=== PATIENT | female | born 1955 | race Caucasian/White ===

== ENCOUNTER 2016-10-10 10:34 | Inpatient (IN) | payer OTHER ==
[~2016-10-10] VITALS: Ht 162.6 cm; Wt 50.9 kg
[~2016-10-10 10:34] MED LIST: BUPROPION HCL150 M2 PO; CIPRO 500MG TA500 MG PO; FLOMAX(MONOGRA0.4 MG PO; PERCOCET 325 MG1 TA2 PO; SUBOXONE 8 MG-1 EACH SL; TRAZODONE HCL100 M1 PO; TRAZODONE HCL300 MG PO; TRAZODONE100 MG PO; WELLBUTRIN XL300 M2 PO
--- NOTE | 2016-10-10 11:01 | ED PSYCHIATRIC COMPLAINT ---
History of Present Illness General Chief Complaint: Psychiatric Related Complaint Stated Complaint: BIBA FOR +SI Source: patient, old records Exam Limitations: no limitations Vital Signs & Intake/Output Vital Signs & Intake/Output Vital Signs Date Time Temp Pulse Resp B/P Pulse O2 O2 Flow FiO2 Ox Delivery Rate 10/10 1733 97.8 71 18 171/75 96 Room Air 10/10 1242 Room Air 10/10 1236 64 16 131/60 97 Room Air 10/10 1040 95.3 70 20 192/91 100 Room Air Allergies Coded Allergies: morphine (Mild, ITCHING 10/10/16) rofecoxib (From VIOXX) (Mild, ITCHY 10/10/16) sulfamethoxazole (From BACTRIM) ("SULFA POISONING" 10/10/16) trimethoprim (From BACTRIM) ("SULFA POISONING" 10/10/16) Reconcile Medications Buprenorphine HCl/Naloxone HCl (Suboxone 8 MG-2 MG Sl Film) 8 MG-2 MG FILM 1 STR SL TID PAIN (Reported) Bupropion HCl (Wellbutrin XL) 300 MG TAB.ER.24H 1 TAB PO DAILY MENTAL HEALTH (Reported) Gabapentin 300 MG CAPSULE 1 CAP PO TID PRN ANXIETY (Reported) Trazodone HCl 100 MG TABLET 2 TAB PO QPM SLEEP (Reported) Triage Note: PT BIBA FROM OUTPATIENT PSYCH FOR +SI. PT REPORTS HER PLAN WAS TO BUY 2 BAGS OF HEROIN. PT HAS LONG HISTORY OF SUBSTANCE ABUSE FROM AGE 10. HAD BEEN SOBER THE LAST 5 YEARS UNTIL RELAPSING FEW DAYS AGO WITH HEROIN. DENIES ETOH OR OTHER SUBSTANCE USE/ABUSE. STATES SHE FEELS "HELPLESS", "USELESS" AND JUST FEELS LIKE SHE HAS "NO PURPOSE". 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 PT REQUESTING TO GO OUT AND SMOKE, ADVISED OF NO SMOKING POLICY AND THAT WOULD REQUEST NICOTINE PATCH FOR HER. PT CALM AND COOPERATIVE WITH ALL CARE. Triage Nurses Notes Reviewed? yes HPI: Patient is a 61-year-old female presents complaining of severe depression and suicidal ideation. Patient reports that she was sober from heroin for 5 years then relapsed approximately 3 days ago by snorting heroin. Patient reports her relapse and severe depression stem from her grandson recently overdosing. Depression is severe, thoughts of suicide by overdose. Patient has not taken her medications since Thursday, requesting Wellbutrin and Suboxone. Positive nausea and diarrhea. Denies recent trauma, fevers, vomiting, alcohol use. (MISAEL RAGSDALE) Past History Travel History Traveled to [place] past 21 day No Medical History Any Pertinent Medical History? 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 No (MISAEL RAGSDALE) Review of Systems Review of Systems Constitutional: Reports: fever. Denies: chills. EENTM: Reports: no symptoms. Respiratory: Denies: cough, short of breath. Cardiovascular: Denies: chest pain. GI: Reports: diarrhea, nausea. Denies: abdominal pain, vomiting. Genitourinary: Reports: no symptoms. Musculoskeletal: Reports: no symptoms. Skin: Reports: no symptoms. Neurological/Psychological: Reports: see HPI, depressed, emotional problems, headache. Denies: numbness. Hematologic/Endocrine: Denies: bruising, bleeding. Immunologic/Allergic: Reports: no symptoms. (MISAEL RAGSDALE) Physical Exam Physical Exam General Appearance: alert, awake Head: atraumatic, normal appearance Eyes: Bilateral: normal appearance, PERRL, EOMI. Ears, Nose, Throat: normal pharynx, normal ENT inspection, hearing grossly normal Neck: normal inspection, supple, full range of motion Respiratory: normal breath sounds, chest non-tender, no respiratory distress, lungs clear Cardiovascular: regular rate/rhythm Gastrointestinal: normal bowel sounds, soft, non-tender Extremities: normal range of motion, no track dudley, no signs of trauma Neurological/Psychiatric: awake, alert, depressed affect Behavoir/Eye Contact/Speech: cooperative, good eye contact Thoughts/Hallucinations: no apparent hallucination Skin: intact, normal color, warm/dry SAD PERSONS SAD PERSONS Response Value Age <19 or >45 years? yes 1 Depression/Hopelessness? yes 2 Previous Attempts/Psych Care yes 1 Excessive Ethanol/Drug Use? yes 1 Rational Thinking Loss? yes 2 Single//? yes 1 Social Support? has no support 1 Stated Future Intent? yes 2 Total 11 SAD PERSONS Done? yes (ABHIJEET HIDALGO,MISAEL) Progress Differential Diagnosis: drug intoxication, drug overdose, drug withdrawal, electrolyte abnormality, IC hem/mass/tumor, mood disorder, personality disorder, psychosis, suicide attempt Plan of Care: Orders Procedure Date/time Status Regular Diet 10/11 B Active Lab Add-on Test 10/10 1650 Active Lab Add-on Test 10/10 1646 Active Patient Data - inpatient psych 10/10 1640 Active Admit to inpatient psych 10/10 1640 Active Admit to inpatient psych 10/10 1625 Active Continuous Observation Monitor 10/10 1419 Active Intake & Output 10/10 1139 Active TSH REFLEX 10/10 1100 Active FREE T4 10/10 1100 Active ED CRISIS PSYCH CONSULT 10/10 1100 Active Continuous Observation Monitor 10/10 1042 Active URINE DRUG SCREEN FOR ER ONLY 10/10 1042 Active ETHANOL 10/10 1042 Active COMPREHENSIVE METABOLIC PANEL 10/10 1042 Active CBC WITHOUT DIFFERENTIAL 10/10 1042 Complete Vital Signs 10/10 UNK Active Nursing Misc 10/10 UNK Active Alternative Nursing Therapy 10/10 UNK Active Activity/Ambulation 10/10 UNK Active Current Medications Sig/Radha Start time Last Medication Dose Stop Time Status Admin Nicotine 21 MG DAILY 10/11 1000 AC (Nicoderm) Bupropion HCl 300 MG 0800 10/11 0800 AC (Wellbutrin XL) Gabapentin 300 MG BID@0800,1500 10/11 0800 AC (Neurontin) Buprenorphine/ 1 TAB TID@0800,1500,2200 10/10 2200 AC Naloxone (Suboxone) Gabapentin 600 MG AT BEDTIME 10/10 2200 AC (Neurontin) Trazodone HCl 200 MG AT BEDTIME 10/10 2200 AC (Desyrel) Al Hydroxide/Mg 30 ML Q4-6 PRN PRN 10/10 1700 AC Hydroxide (Maalox Plus) Magnesium Hydroxide 30 ML AT BEDTIME PRN 10/10 1700 AC (Milk Of Magnesia) Laboratory Tests 10/10/16 1200: Urine Opiates Screen > 4000.00 H, Buprenorphine & Metab Pending, Methadone Screen < 40, Barbiturate Screen < 60, Ur Phencyclidine Scrn < 6.00, Amphetamines Screen < 100, U Benzodiazepines Scrn < 85, Urine Cocaine Screen < 50, Urine Cannabis Screen < 5.00 10/10/16 1100: Anion Gap 10, Estimated GFR > 60, BUN/Creatinine Ratio 25.0, Glucose 158 H, Calcium 9.7, Total Bilirubin 0.4, AST 19, ALT 26, Alkaline Phosphatase 78, Total Protein 6.5, Albumin 4.0, Globulin 2.5, Albumin/Globulin Ratio 1.6, Free T4 Pending, TSH &T3 &Free T4 Intrp 0.108 L, CBC w Diff MAN DIFF ORDERED, RBC 5.17, MCV 85.1, MCH 28.8, RDW 13.8, MPV 8.7, Gran % 87.7 H, Lymphocytes % 10.9 L, Monocytes % 1.3 L, Eosinophils % 0, Basophils % 0.1, Absolute Granulocytes 7.1 H, Absolute Lymphocytes 0.9 L, Absolute Monocytes 0.1 L, Absolute Eosinophils 0, Absolute Basophils 0, Platelet Estimate VERIFIED BY SMEAR, Normocytic RBCs VERIFIED, Normochromic RBCs VERIFIED, PUBS MCHC 33.8, Serum Alcohol < 10.0 Patient's blood pressure significantly improved after administration of her Suboxone. Suspect opiate withdrawal. Patient evaluated by care clinician, to be admitted to [facility] (MISAEL RAGSDALE) Departure Departure Time of Disposition: 1626 Disposition: STILL A PATIENT Condition: Stable Clinical Impression Primary Impression: Depression Qualifiers: Depression Type: unspecified Qualified Code: F32.9 - Major depressive disorder, single episode, unspecified Secondary Impressions: Opiate withdrawal Referrals: TIMO RIOS,JUJU Moreno Departure Forms: Customer Survey General Discharge Information Psych Admission Note Psychiatric Admission: I have seen and evaluated DOC AREVALO. I have also reviewed all the pertinent lab results and diagnostic results. DOC AREVALO will be admitted to our inpatient Psychiatric unit for treatment and care. (MISAEL RAGSDALE) PA/WOODWIND REEDS CUTTER Co-Sign Statement Statement: ED Attending supervision documentation- [] I saw and evaluated the patient. I have also reviewed all the pertinent lab results and diagnostic results. I agree with the findings and the plan of care as documented in the PA's/WOODWIND REEDS CUTTER's documentation. [X] I have reviewed the ED Record and agree with the PA's/WOODWIND REEDS CUTTER's documentation. [] Additions or exceptions (if any) to the PAs/WOODWIND REEDS CUTTER's note and plan are summarized below: [] (STELLA GONZALEZ DO)
[2016-10-10 11:19] LABS: ABSOLUTE BASOPHIL COUNT 0 /CUMM (0.0-0.2); ABSOLUTE EOSINOPHIL COUNT 0 /CUMM (0.0-0.7); ABSOLUTE GRANULOCYTE CT 7.1 /CUMM (1.4-6.5); ABSOLUTE LYMPH COUNT 0.9 /CUMM (1.2-3.4); ABSOLUTE MONOCYTE COUNT 0.1 /CUMM (0.10-0.60); BASOPHIL % 0.1 % (0.0-2.0); EOSINOPHIL % 0 % (0-5); GRANULOCYTE % 87.7 % (42.2-75.2); MEAN CORPUSCULAR HGB 28.8 PG (27.0-31.0); MEAN CORPUSCULAR HGB CONC 33.8 G/DL (33.0-37.0); MEAN CORPUSCULAR VOLUME 85.1 FL (81.0-99.0); MEAN PLATELET VOLUME 8.7 FL (7.4-10.4); PLATELET COUNT 226 /CUMM (130-400); RBC DISTRIBUTION WIDTH 13.8 % (11.5-14.5); RED BLOOD CELL CT 5.17 /CUMM (4.20-5.40)
[2016-10-10] MEDS ORDERED: GABAPENTIN300 M2 PO (14:19)
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
[2016-10-10 19:04] VITALS: BP 171/78
--- NOTE | 2016-10-10 23:13 | History & Physical ---
General Information and HPI MD Statement: I have seen and personally examined DOC AREVALO and documented this H&P. The patient is a 61 year old F who presented with a patient stated chief complaint of [Depression, SI, relapsed to Heroin]. Source of Information: patient Exam Limitations: no limitations History of Present Illness: 61 yo F with h/o depression, previous opioid dependence on suboxone (sober from heroin for 5 years), relapsed about 3 days ago by snorting heroin. She is admitted to Inpatient Psychiatry for worsening depression and suicidal ideation. She also stopped taking her depression meds for past few days. For more details, please refer to Psych H and P. Nausea+, diarrhea+. No vomiting or abdominal pain. Currently denies chest pain, dyspnea, palpitations, lightheadedness, cough or urinary symptoms. She does not carry a history of hypertension, but her BP was noted to be elevated while in the ER. Allergies/Medications Allergies: Coded Allergies: morphine (Mild, ITCHING 10/10/16) rofecoxib (From VIOXX) (Mild, ITCHY 10/10/16) ITCHING AND SWELLING sulfamethoxazole (From BACTRIM) ("SULFA POISONING" 10/10/16) trimethoprim (From BACTRIM) ("SULFA POISONING" 10/10/16) Home Med list Buprenorphine HCl/Naloxone HCl (Suboxone 8 MG-2 MG Sl Film) 8 MG-2 MG FILM 1 STR SL TID PAIN (Reported) Bupropion HCl (Wellbutrin XL) 300 MG TAB.ER.24H 1 TAB PO DAILY MENTAL HEALTH (Reported) Gabapentin 300 MG CAPSULE 1 CAP PO TID PRN ANXIETY (Reported) Trazodone HCl 100 MG TABLET 2 TAB PO QPM SLEEP (Reported) Compliance With Home Meds: FAIR Past History Travel History Traveled to [place] past 21 day No Medical History Neurological: NONE EENT: NONE Cardiovascular: NONE Respiratory: NONE Gastrointestinal: diverticulitis Hepatic: NONE Renal: NONE Musculoskeletal: NONE Psychiatric: depression, insomnia, opioid dependence Endocrine: NONE Blood Disorders: NONE Cancer(s): NONE YARD STOCKER/Reproductive: NONE History of MRSA: No History of VRE: No History of CDIFF: No Isolation History: Standard Surgical History Surgical History: Left ankle mortise fracture s/p repair, Intestinal obstruction s/p resection and repair. Past Family/Social History Family History Relations & Conditions if any FATHER (HypertensionMILeukemia). Psychosocial History Where do you live? Home Who Do You Live With? self Services at Home: None Primary Language: Bolivian Smoking Status: Current Everyday Smoker ETOH Use: denies use Illicit Drug Use: heroin, SOBER X 5 YRS, RELAPSED FEW DAYS AGO...10/2016 Functional Ability ADLs Independent: dressing, eating, toileting, bathing. Ambulation: independent IADLs Independent: housework, telephone, transportation. Employment History Employment Unemployed Profession/Employer Patient recently unemployed Review of Systems Review of Systems Constitutional: Denies: chills, fever, weakness. EENTM: Reports: no symptoms. Cardiovascular: Denies: chest pain, palpitations, syncope. Respiratory: Denies: cough, short of breath, wheezing. GI: Reports: diarrhea, nausea. Denies: abdominal pain, vomiting. Genitourinary: Reports: no symptoms. Musculoskeletal: Reports: no symptoms. Neurological/Psychological: Reports: see HPI. All Other Systems: Reviewed and Negative Exam & Diagnostic Data Last 24 Hrs of Vital Signs/I&O Vital Signs Date Time Temp Pulse Resp B/P Pulse O2 O2 Flow FiO2 Ox Delivery Rate 10/10 1904 98.2 60 171/78 10/10 1733 97.8 71 18 171/75 96 Room Air 10/10 1242 Room Air 10/10 1236 64 16 131/60 97 Room Air 10/10 1040 95.3 70 20 192/91 100 Room Air Intake & Output 10/10 1600 10/10 0800 10/10 0000 Intake Total Output Total Balance Patient 120 lb Weight Physical Exam General Appearance Alert, Oriented X3, Cooperative, No Acute Distress Skin No Rashes, No Breakdown HEENT Atraumatic, PERRLA, Mucous Membr. moist/pink Neck Supple Cardiovascular Regular Rate, Normal S1, Normal S2, No Murmurs Lungs Clear to Auscultation, Normal Air Movement Abdomen Normal Bowel Sounds, Soft, No Tenderness Neurological Exam Findings: Normal Gait, Normal Speech, Strength at 5/5 X4 Ext, Cranial Nerves 3-12 NL, Reflexes 2+ Cranial Nerves II through XII: Grossly intact Extremities No Edema, Normal Pulses, No Tenderness/Swelling Last 24 Hrs of Labs/Elvis: Laboratory Tests 10/10/16 1200: Urine Opiates Screen > 4000.00 H, Buprenorphine & Metab POSITIVE, Methadone Screen < 40, Barbiturate Screen < 60, Ur Phencyclidine Scrn < 6.00, Amphetamines Screen < 100, U Benzodiazepines Scrn < 85, Urine Cocaine Screen < 50, Urine Cannabis Screen < 5.00 10/10/16 1100: Anion Gap 10, Estimated GFR > 60, BUN/Creatinine Ratio 25.0, Glucose 158 H, Calcium 9.7, Total Bilirubin 0.4, AST 19, ALT 26, Alkaline Phosphatase 78, Total Protein 6.5, Albumin 4.0, Globulin 2.5, Albumin/Globulin Ratio 1.6, Free T4 1.55 , Total T3 1.31, TSH &T3 &Free T4 Intrp 0.108 L, CBC w Diff MAN DIFF ORDERED, RBC 5.17, MCV 85.1, MCH 28.8, RDW 13.8, MPV 8.7, Gran % 87.7 H, Lymphocytes % 10.9 L, Monocytes % 1.3 L, Eosinophils % 0, Basophils % 0.1, Absolute Granulocytes 7.1 H, Absolute Lymphocytes 0.9 L, Absolute Monocytes 0.1 L, Absolute Eosinophils 0, Absolute Basophils 0, Platelet Estimate VERIFIED BY SMEAR, Normocytic RBCs VERIFIED, Normochromic RBCs VERIFIED, PUBS MCHC 33.8, Serum Alcohol < 10.0 Diagnostic Data EKG Results -- CXR Results -- Assessment/Plan Assessment: 61 yo F admitted for worsening depression, suicidal ideation and relapsed by snorting heroin 3 days ago. 1. Management per Psych team. Symptomatic treatment of opiate withdrawal. 2. Elevated BP likely stress/ anxiety related. BP rechecked 136/60. Will continue to monitor. 3. Smoking cessation counseling, nicotine patch. 4. Low TSH, but normal free T4 and T3. Possibly sick euthyroid. Patient will need to recheck TFTs as outpatient in 4 weeks. DVT prophylaxis - low risk, early ambulation. As Ranked By This Provider Problem List: 1. Insomnia 2. Anxiety 3. Elevated blood pressure 4. Suicide ideation 5. Depression Qualifiers Depression Type: unspecified Qualified Code: F32.9 - Major depressive disorder, single episode, unspecified Miscellaneous Miscellaneous Documentation Attending Case Discussed With: JEAN CLAUDE COUCH,JOHN Primary Care Physician: ASHLEY COUCH,NICA Patient sees these Specialists -- Level of Patient Care: MINH Kwok Attending MD Review Statement Attending Statement Attending MD Statement: examined this patient, discuss w/resident/PA/ROAD MAKER
--- NOTE | 2016-10-10 23:13 | Admission Certification ---
Admission Certification Certification Statement - As attending physician, I certify that at the time of - admission, based on clinical presentation, severity of - symptoms, need for further diagnostic testing and - therapeutic interventions, and risk of adverse outcomes - without in-hospital treatment, in my clinical assessment, - this patient requires an acute hospital stay for a minimum - of two nights or longer. I have also considered psychsocial - factors such as support system, advanced age, financial - issues, cognitive issues, and failed out-patient treatments, - past re-admission history, safety of patient, and lack of - compliance as applicable. Specific rationale supporting this admission is: Depression and suicidal ideation.
[2016-10-10 23:33] VITALS: BP 136/60
[2016-10-11 12:52] VITALS: BP 137/63
--- NOTE | 2016-10-11 13:27 | CPS MD/APRN INITIAL ASSE PSYCH ---
Psychiatric Admission Drum Worker's Note Reviewed: Yes Patient Seen and Examined: Yes Identifying Information: 61 year old female with history of depression and opioid dependence Chief Complaint: "I've got a lot to take care of myself first" Reaction to Hospitalization: Relieved History of Present Illness Onset of Illness: Chronic difficulties with mood Circumstances Leading to Admission: Difficulties with her 25-year-old grandson who overdosed on heroin recently, lost job at [employer] in August with consequent difficulties with finances, and ongoing strife with her adult daughter. Relapsed on heroin 3 days prior to admission. Problem(s) Justifying Need for Admission: Worsening depression, suicidal ideation with plan Other HPI: Per telecommunications linesworker note: " The patient is a 61 year old female BIBA to the ED with a complaint of depression and suicidal ideation. The patient presented as depressed, tearful, hopeless and helpless. She reports current suicidal ideation with a plan to overdose by doing as much heroin as I can and not wake up. She reports decreased energy and motivation (not able to shower at times for 3 or 4 days). She reports decreased appetite (sometimes not eating for 2 or 3 days). She reports regular sleep with the assistance of Trazadone. She reports depression of 10 and anxiety of 8 on a scale of 0 to 10, 10 being most severe. The patient reports her triggers as being her 25 year old grandson overdosing on heroin last week, losing her job at [employer] in August and finances. The patient denies any prior suicide attempts. She denies past or current HI, visual hallucinations and auditory hallucinations. The patient reports relapsing with heroin on Thursday after being abstinent from heroin for 5 years, using two bags of heroin IN. The patient reports being seen by Dr. Ward of [facility] outpatient for ongoing treatment. She reports being compliant with taking her prescribed Wellbutrin, Suboxone, Trazadone and Gabapentin. The patient reports a prior inpatient admission for depression and suicidal ideation at [facility] in August,. The patient reports worsening depression, ongoing suicidal ideation, not feeling safe to return home and requests inpatient treatment." Past Psychiatric History Past Diagnosis(es)- if any: Major depressive disorder, recurrent Opioid use disorder, severe Past Precipitating Factors- if any: Psychosocial stressors Substance use - Include inpatient and outpatient treatment Treatment History: Currently in outpatient treatment at [facility] with Dr. Tommy Ward. One previous inpatient psychiatric Hospital physician at in August 2015 for depression with SI. History of Suicide Attempts or Gestures Denies history of suicide attempts Substance Abuse History: Opiate use, including heroin currently on Suboxone maintenance treatment. Allergies: Coded Allergies: morphine (Mild, ITCHING 10/10/16) rofecoxib (From VIOXX) (Mild, ITCHY 10/10/16) ITCHING AND SWELLING sulfamethoxazole (From BACTRIM) ("SULFA POISONING" 10/10/16) trimethoprim (From BACTRIM) ("SULFA POISONING" 10/10/16) Home Med List: Per ER intake note Buprenorphine HCl/Naloxone HCl (Suboxone 8 MG-2 MG Sl Film) 8 MG-2 MG FILM 1 STR SL TID PAIN (Reported) Bupropion HCl (Wellbutrin XL) 300 MG TAB.ER.24H 1 TAB PO DAILY MENTAL HEALTH (Reported) Gabapentin 300 MG CAPSULE 1 CAP PO TID PRN ANXIETY (Reported) Trazodone HCl 100 MG TABLET 2 TAB PO QPM SLEEP (Reported) - Include any medical condition(s) that may - impact the patient's recovery/remission Past History Medical History Neurological: NONE EENT: NONE Cardiovascular: NONE Respiratory: NONE Gastrointestinal: diverticulitis Hepatic: NONE Renal: NONE Musculoskeletal: NONE Psychiatric: depression, insomnia, opioid dependence Endocrine: NONE Blood Disorders: NONE Cancer(s): NONE 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 Contentious relationship with her daughter [place] Education: Some college Vocation/Occupation: Most recently employed at [employer]. Lost her job there in August 2016 Legal: None known Other Social History: Grandson with heroin addiction Healthly Behaviors Screening Tobacco Screening Tobacco Use from ED Docu: Current Daily Use Daily Tobacco Use Amount/Type: => 5 Cigarettes daily - If tobacco counseling indicated - the following topics are required. - #1 Recognizing dangerous situations. - #2 Coping Skills. - #3 Basic information about quitting. Status of Tobacco Cessation Counseling: #1, #2 AND #3 Completed Cessation Med Status: Nicotine Patch Ordered Alcohol Screening - ETOH screen POS if BAL >=80 or Audit-C>= M4/F3 Audit-C Score from Diag Assess: 0 Blood Alcohol Level: Laboratory Tests 10/10 1100 Toxicology Serum Alcohol (<10 MG/DL) < 10.0 Alcohol Use Screening Results: Neg per Audit C &/or BAL - If ETOH counseling indicated - the following topics are required. - #1 Express concern about the patient's - drinking at unhealthy levels, include informing - of national norms for moderate drinking: - men <= 14 drinks/week, max 4 drinks/occasion - women <= 7 drinks/week, max 3 drinks/occasion - #2 Providing feedback, including linking alcohol to - negative physical effects (liver injury, hypertension) - negative emotional effects (relationship problems and - depression) - negative occupational consequences (reduced work - performance) - #3 Advising the patient to abstain from alcohol or - to drink below national norms for moderate drinking - (as listed above). Status of ETOH Use Counseling: N/A B/C NO ETOH Use Metabolic Screening - Screen if on a Neuroleptic Medication - Metabolic screening should include: - Blood Pressure, BMI, Glucose or Hgb A1c, & a - Lipid profile from within the past 365 days. Metabolic Screening () Not Applicable, patient not on a neuroleptic. Exam and Plan Mental Status Examination Ambulation Status: stable Appearance: well groomed Attitude towards examiner: cooperative Psychomotor activity: wnl Behavior: wnl Quality of speech: wnl Affect: constricted Mood: "feeling more comfortable" Suicidal Ideation: Denies Homicidal Ideation: Denies Hallucinations: Denies Paranoid/Delusional Material: Denies Difficulties with thought organization: None Insight: Fair Judgment: Fair Orientation: To person place time and situation Cognition: Intact Memory Function: Intact Estimate of intellectual functioning: Average Assets/Strengths Patient Identified Assets/Strengths: Wants to support her family. Some support from her mother. Impression/Plan Impression and Plan: Significant depressive reaction in response to multiple psychosocial stressors and substance use as maladaptive coping. - Include all active medical diagnosis that require tx DSM 5 Diagnosis(es): Major depressive disorder, recurrent Opiate use disorder, moderate - Initial Tx Plan for Active Psych & Medical Conditions Treatment Plan: Admit inpatient psychiatry 15 minute checks appropriate Continue outpatient medications Monitor for mood improvement and safety Attempt to build further coping skills, social work intervention to include investigation into alternative living situation To determine appropriate outpatient level of care - Factors that would help patient function - in a less restrictive setting. Factors: Improved mood, reduced or absent suicidal ideation
[2016-10-11 15:43] VITALS: BP 134/75
[2016-10-11 19:50] VITALS: BP 144/78
[2016-10-12 08:33] VITALS: BP 149/79
[2016-10-12 12:19] VITALS: BP 111/62
--- NOTE | 2016-10-12 13:27 | CP SOUTH PROGRESS NOTE PSYCH ---
Psych (Inpt) Progress Note Progress Note Include the following elements, when applicable: Involvement in the active treatment of the patient with behavioral observations of the patient and the patient's response to the treatment. Review of the ongoing treatment process in the context of the treatment plan. Indication of how multi-disciplinary staff members are carrying out the treatment plan. Plans for future interventions and recommendations for revision of the treatment plan. Liaison with other physicians/providers. Progress Note: Chart reviewed, patient progress discussed nursing staff. Interview patient this morning. Jasmine was struggling with anxiety and mood today. We underwent a prolonged session this morning where she described her concerns for the future, saying "it's been so long since I can remember just waking up and looking forward to the day, and feeling normal". She describes significant concern about her relationship with her daughter as well as her daughter's son. We discussed the importance of both short and long-term goals. She denies suicidal ideation on the unit. Denies HI or perceptual disturbances. Says that her mood remains very depressed. Vitals reviewed and were within normal limits. No new laboratory results today. Mental status exam: Very thin female dressed appropriately adequate grooming. Cooperative with interview quite tearful during interview. Fair eye contact. Speech was within normal limits. Mood was "really depressed ", affect was constricted, labile, congruent. Thought process was logical and linear, content regarding difficulties with family and finances, denies SI or HI, denies perceptual disturbances, cognition was grossly intact, insight and judgment was fair. A/P: Continue present management. Focused on reframing significant social stressors and trying to establish a realistic plan moving forward.
[2016-10-12 15:09] VITALS: BP 127/70
[2016-10-12 19:49] VITALS: BP 154/88
[2016-10-13 07:59] VITALS: BP 128/67
[2016-10-13 12:23] VITALS: BP 115/55
--- NOTE | 2016-10-13 13:11 | CP SOUTH PROGRESS NOTE PSYCH ---
Psych (Inpt) Progress Note Progress Note Include the following elements, when applicable: Involvement in the active treatment of the patient with behavioral observations of the patient and the patient's response to the treatment. Review of the ongoing treatment process in the context of the treatment plan. Indication of how multi-disciplinary staff members are carrying out the treatment plan. Plans for future interventions and recommendations for revision of the treatment plan. Liaison with other physicians/providers. Progress Note: PSYCHIATRIST NOTE (10/13/2016): I asssumed the care of this patient this morning. I have reviewed the admission note, initial M.D. assessment and progress note, as well as the prescriber notes going back to 08/2012 (those of Dr. Howell, Dr. Howard, Dr. Fermin , Dr. Mireles, Dr. Murrieta, Dr. Ely) and those of current treating Psychiatrist, Dr. Tommy Ward; I have also spoken the the latter directly today via telephone to consult re recent history and a joint treatment plan going forward. Patient reports feeling less desperate and overwhelmed than she had been ADOPTION COUNSELOR when she took the 2 bags of heroin and contemplated taking a much higher dose, but she is still profoundly depressed, anergic, lacking in energy but sleeping better with the full 200mg of trazodone at HS with 300mg of Neurontin; she does not want the latter regularly 3x/day but would rather have 1-2 PRN doses of the Neurontin as needed for anxiety or insomnia. Though patient acknowledges continued craving for heroin, this is becoming less intense daily, and she feels the current dose of Suboxone, 8/2mg SL 3x/day is sufficent though we changed the dosing hours slightly. Patient told me the only other anti- depressant medication she has been on was [place], 600mg/day, to augment the Wellbutrin XL, 300mg daily but that the [place] was "too much...and didn't help, " so she stopped taking it some time ago and did not notice any intensification of depressive mood following self-d/c of Li+. We discussed possible augmentation of Wellbutrin with low dose Lexapro; after discussion of R/B/SE patient agreed to start Lexapro, 5mg, tomorrow AM, . We also discussed having a family meeting; patient had already gone over this with Ms. Bre, and there will be a telephonic meeting with her mother (who is [id number]); patient feels that adding anyone else from her family would likely only lead to increase in stress and dysfunction in the family at this time. Dr. Cooper agrees to patient following up in the dual focus IOP; in fact , he had already been making arrangements for this ADOPTION COUNSELOR. We will likely be able to discharge patient before the weekend.
--- NOTE | 2016-10-13 13:32 | SOCIAL WORKER PROG NOTE PSYCH ---
Social Work Progress Note Progress Note HASMUKH met with patient for the first time today. Patient reports that she has felt extremely overwhelmed lately, mostly related to family concerns. Patient states that she resides with her daughter and her grandson. Patients grandson is a heroin user and overdosed last week. Patient reports that she has been unable to sleep lately due to fear of him overdosing and dying. Patient reports that she relapsed on heroin last Thursday due to all the stress she has been experiencing but her family is not aware of this. Patient does not wish to have her daughter involved in her treatment. Patient is open to her mother doing a phone conference with us but reports some hesitancy about any family involvement. Patient reports that she would like to return to [facility] with in near future and plans for discharge from the hospital over the next few days.
--- NOTE | 2016-10-13 13:52 | SOCIAL WORKER TX PLAN PSYCH ---
Treatment Plan - Please Document: - Evidence that there is ongoing collaboration between - the patient and the interdisciplinary team, - including the patient's active participation and - responsibility for engaging in the treatment regimen, - and that the treatment plan is individualized and - relevant to the patient's conditions. - Treatment plan should reflect documentation indicating - that all active therapeutic efforts are included. Strengths/Capabilities: Insight into her need for treatment and motivated to attend. Physical Limitations (Interventions): None noted Patient Identified Trmt Goals: "I want to feel better about things." Discharge Plan: IOP Problem/Goals #1 Problem #1: suicidal ideation Goal (Short Term): Today I will attend 2 groups Today I will identify 2 stressors Today I will identify 2 positive supports Today I will work on recognizing 3 emotions I am feeling Goal (Litigation Legal Assistant): Be free of suicidal thoughts/attempts Develop 3 coping skills to deal with depression Identify 3 positive support systems to call in crisis Develop a crisis plan with 3 dey people Identify 2 positive traits per week about myself Identify 2 things I have to look forward to Identify 2 positive people in my life and 1 thing I appreciate about them Interventions: Learn ways to manage depressive symptoms accordingly and identify positive supports to manage life stressors and mood fluctuations. Modalities: Encourage groups, education on depression, provide CBT treatment, family meeting. DSM5/PS Stressors/Medical Prob Diagnosis' (DSM 5, Stressors, Medical): F32.9 Unspecified Depressive Disorder F11.20 Opioid Use Disorder, Severe Current GAF: 28 Treatment Team - Responsibilities of members of the treatment team include: - Medication Management- MD or CAR CHANGER - Medication Administration and Monitoring- Nurse - Group Therapy- Occupational Therapist - 1:1 Therapy,Disch Planning,family involvement-Dumper Mold Cleaner
[2016-10-13 16:19] VITALS: BP 128/67
[2016-10-13 19:49] VITALS: BP 158/78
[2016-10-14 07:47] VITALS: BP 109/54
[2016-10-14 11:29] VITALS: BP 116/59
--- NOTE | 2016-10-14 11:58 | SOCIAL WORKER PROG NOTE PSYCH ---
Social Work Progress Note Progress Note Met with pt individually. Pt expresses that she is feeling better and thinks she is ready to discharge soon. She denies any SI. She expressed her motivation to return to IOP. Pt expressed her anxiety about her grandson and his drug use, but identified that she realizes that she has no control over it and needs to continue to take care of herself and her sobriety.
[2016-10-14 16:08] VITALS: BP 148/70
--- NOTE | 2016-10-14 18:24 | CP SOUTH PROGRESS NOTE PSYCH ---
Psych (Inpt) Progress Note Progress Note Include the following elements, when applicable: Involvement in the active treatment of the patient with behavioral observations of the patient and the patient's response to the treatment. Review of the ongoing treatment process in the context of the treatment plan. Indication of how multi-disciplinary staff members are carrying out the treatment plan. Plans for future interventions and recommendations for revision of the treatment plan. Liaison with other physicians/providers. Progress Note: PSYCHIATRIST NOTE (10/14/2016): I discussed this patient's progress to date, current mental status and plan with staff team today in the [facility] and also met with her again myself in individual session. Patient denied any problems, jitteriness, headache, dyspepsia, etc., on initial dose of Lexapro (5mg) this morning and was willing to double the daily dose tomorrow, 10/15/2016, to 10mg (to augment Wellbutrin). She has been having a problem with constipation, has not moved her bowels in 3+ days which is unusual and uncomfortable for her; she agreed to a dose of Dulcolax and prefers it in suppository form, insisting "that works best when I can't 'go'." Patient says that though she "smokes alot" she only asks for the 21mg patch irregularly; we agreed to lower the dose to 14mg daily, but she will use that dose daily. Patient continues to be positive re attending the dual focus IOP, to discharge on 10/16/2016 and starting the AM tract the next morning. Patient claims to have slept better last night and to not have felt at all groggy this morning; her mood and outlook seem to be improving; patient had a positive interaction earlier today with the daughter with whom she resides; this also served to place her more at ease.
[2016-10-14 19:40] VITALS: BP 153/78
[2016-10-15 08:06] VITALS: BP 115/56
[2016-10-15 12:24] VITALS: BP 127/53
--- NOTE | 2016-10-15 13:36 | SOCIAL WORKER PROG NOTE PSYCH ---
Social Work Progress Note Progress Note Patient had phone conference today with her mother, Jasmine, and this communications writer. Patients mothers primary concern is patients current living situation. Patient currently resides with her daughter and grandson. Patients mother reports that in the past patient lived with her and other family members and it was a good situation for patient. Patient disagrees and states that she found that environment very intrusive and stressful. Mother wishes patient still lived with her and fears that returning back to patients daughters household will be stressful and not beneficial for her. Patient states that at this point she does not have other options and needs to remain with her daughter. Patients mother fears that patient will end up back inpatient at in the near future if she continues to reside in a stressful and harmful environment iwth her daughter. Patient was not willing to compromise on this situation but did state that she is working on applying for SSDI and if she is elegible then she will seek her own housing. Patient denies SI/HI/AH/VH at present and reports feeling ready to discharge the hospital tomorrow. Patient has intake at 12:45pm and logisticare will be arranged to transport patient home.
[2016-10-15 15:51] VITALS: BP 143/63
--- NOTE | 2016-10-15 18:39 | CP SOUTH PROGRESS NOTE PSYCH ---
Psych (Inpt) Progress Note Progress Note Include the following elements, when applicable: Involvement in the active treatment of the patient with behavioral observations of the patient and the patient's response to the treatment. Review of the ongoing treatment process in the context of the treatment plan. Indication of how multi-disciplinary staff members are carrying out the treatment plan. Plans for future interventions and recommendations for revision of the treatment plan. Liaison with other physicians/providers. Progress Note: PSYCHIATRIST NOTE (10/15/2016): I discussed this patient's progress to date, current mental status and discharge planning with staff team in the daily morning ITTM and also met with her again myself in individual session. Patient denied any side effects from increased dose of Lexapro (10mg/day) and is positive re continuing on augmentation of Wellbutrin therapy with SSRI while attending dual focus [facility]. Patient plans to continue living with her own daughter until she has the opportunity to secure her own apartment and will endeavor to minimize friction between them; she ruled out going to stay with her mother citing even greater potential for problems developing in mother's home. Patient is very grateful for the care she has received on [facility] and is feeling stronger and better able to cope out the the community at this time, ready for discharge tomorrow directly to IOP intake.
[2016-10-15 19:26] VITALS: BP 139/63
[2016-10-16 08:03] VITALS: BP 119/54
--- NOTE | 2016-10-16 09:13 | SOCIAL WORKER PROG NOTE PSYCH ---
Social Work Progress Note Progress Note Patient to discharge the hospital today. Patient has intake at [facility] today at 12:45pm. Patient plans to return home to her daughters house and will continue residing with her. Patient states this is not the most ideal situation, but it is a safe environment and she will start the process of applying for SSDI in order to obtain income to support herself and seek new housing eventually. Patient denies SI/HI/AH/VH at present and is able to contract for safety.
[2016-10-16 12:09] VITALS: BP 131/54
[2016-10-16] MEDS ORDERED: NICOTINE PATCH1 EAC2 TOP (12:45)
[2016-10-16] MEDS ORDERED: LEXAPRO10 M1 PO (13:01)
--- NOTE | 2016-10-16 13:30 | CP SOUTH PROGRESS NOTE PSYCH ---
Psych (Inpt) Progress Note Progress Note Include the following elements, when applicable: Involvement in the active treatment of the patient with behavioral observations of the patient and the patient's response to the treatment. Review of the ongoing treatment process in the context of the treatment plan. Indication of how multi-disciplinary staff members are carrying out the treatment plan. Plans for future interventions and recommendations for revision of the treatment plan. Liaison with other physicians/providers. Progress Note: PSYCHIATRIST NOTE (DISCHARGE), 10/17/2015: I discussed this patient's progress to date, current mental status and discharge plan with staff team in the daily morning ITTM and also met with her again myself in individual session prior to discharging her directly to intake at the [facility] on this date at 12:45pm; patient continues to be positive about referral and participation in aftercare programming. She is currently euthymic, showing no evidence of suicidal or homicidal ideation, intent, plan or impulses and is well aware of the resources she can easily access if she becomes concerned with regard to her mood. Patient denies any side effects on current psychotropic medication regimen which she intends to continue taking as prescribed. For patient's list of discharge medications, please see the electronic discharge plan. I called into [email or web address] pharmacy in [place], [place] on date of discharge: Lexapro, 10mg: i daily in AM (10mg/day); #14 with no refill Suboxone 8/2mg: i film SL 3x/day (24/6mg daily); #21 with no refill (patient is aware that the prescription for Suboxone is for only one week but will be renewed by her prescriber in the IOP within the week after discharge so long as she follows through with referral/attends program; I would recommend very gradual outpatient taper of current relatively high dose of Suboxone.
--- NOTE | 2016-10-16 15:51 | DISCHARGE SUMMARY REPORT-PSYCH ---
Visit Information Visit Dates/Diagnosis' Admission Date: 10/10/16 Discharge Date: 10/16/16 Reason for Admission: "I am so depressed. I can't take this anymore." Psy Discharge Primary Diag: Unspecified Depression Opioid Use Disorder Psy Discharge Secondary Diag: Anxiolytic Use Disorder COPD, severe Hypertension Sedative/hypnotic/ Hospital Course Significant Lab Findings: glucose = 158; TSHR = 0.108; lymph = 10.9%, mono = 1.3%, gran = 87.7%. lymph abs = 0.9%, mono abs = 0.1%, gran abs = 7.1%, WBC = 8.0; urine for drugs of abuse-- positive for buprenorphine (patient is prescribed Suboxone) and morphine ( greater than 4,000.00ng/ml); for details of all normal range laboratory data from this admission, see the electronic medical record Course Complications: none Consultations: patient was seen for an admission medical H&P by Latonia Love M.D., and followed medically throughout this admission by the hospitalists/[facility] medical attending physicians Allergies: Coded Allergies: morphine (Mild, ITCHING 10/10/16) rofecoxib (From VIOXX) (Mild, ITCHY 10/10/16) ITCHING AND SWELLING sulfamethoxazole (From BACTRIM) ("SULFA POISONING" 10/10/16) trimethoprim (From BACTRIM) ("SULFA POISONING" 10/10/16) Hospital Course/TX Response: Initially, patient was profoundly depressed and anxious, feeling hopeless, worried about her relationship with daughter with whom she resides and her grandson who is "on heroin" and accidentally overdosed recently but, unfortunately, would not agree to a family meeting with anyone but her own 85- year-old mother. 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 Ward. Patient agreed to a trial of SSRI augmentation of Wellbutrin with Lexapro and tolerated well upward titration to 10mg/day over course of admission. Though patient decided to return to her daughter's home upon discharge, patient stated her intent to obtain her own housing once she is approved for SSDI. By the date of discharge, suicidality had completely resolved; patient was euthymic, showing no evidence of suicidal or homicidal ideation, plans, intent or impulses and was well aware of the safety plan should she in future again find herself concerned about self- destructive impulses. Discharge HBIPS - Tobacco Use Treatment Offered Post DC Medications Offered: Script Given-See Med List Post DC Tobacco Treatment Plan: [facility] (next group 10/22/2016 at 4pm) - EtOH/Drug Use D/O Treatment Offered Post DC Medications Offered: NA-No EtOH/Drug Use D/O Post DC EtOH/SubAbuse TX Plan: NA-No EtOH/Drug Use D/O Metabolic Screening - Screen if on a Neuroleptic Medication - Metabolic screening should include: - Blood Pressure, BMI, Glucose or Hgb A1c, & a - Lipid profile from within the past 365 days. Discharge Instructions General Discharge Information Discharge Medications: Discharge Medications (dose, route, frequency, indications): HOME MEDICATION LIST START taking these NEW Home Medications: Nicotine (Nicotine Dose: On the skin, DAILY @8 AM Qty: 30 Patch) 14 MG/24 HOUR 14 Milligram for SMOKING CESSATION Refills: 0 PATCH.TD24 OTC NOT GIVEN IN HOSPITAL Escitalopram Oxalate Dose: ORAL, DAILY @8 AM for Qty: 14 Called in to (Lexapro) 10 MG 10 Milligram depression Refills: 0 Pharm 1 TABLET Last Taken: 10/16/16 Time: 0800 CONTINUE taking these Home Medications: Buprenorphine HCl/ Dose: SUBLINGUAL, THREE TIMES Naloxone HCl (Suboxone 8 1 Strip DAILY for PAIN MG-2 MG Sl Film) 8 MG-2 Last Taken: 10/16/16 MG FILM Time: 1300 Bupropion HCl Dose: ORAL, DAILY for MENTAL (Wellbutrin XL) 300 MG 1 Tablet HEALTH TAB.ER.24H Last Taken: 10/16/16 Time: 0800 Trazodone HCl (Trazodone Dose: ORAL, Every night for HCl) 100 MG TABLET 2 Tablet SLEEP Last Taken: 10/15/16 Time: 2200 Gabapentin (Gabapentin) Dose: ORAL, THREE TIMES DAILY 300 MG CAPSULE 1 Capsule as needed for ANXIETY Last Taken: 10/15/16 Time: 0800 1: [id number], [address] [place] [address] Your Preferred Pharmacy [id number] [place] [id number] Multiple Neuroleptics: ([X]) Not Applicable OR Document below three failed attempts at monotherapy, or a plan to taper to monotherapy, or augmentation of Clozapine. () Patient's Diet: regular Patient's Activity: self-limited DC Disposition: to home with daughter Recommendations: continue evaluating effectiveness of augmentation of Wellbutrin by Lexapro; attempt slow taper of current HS dose of trazodone; consider very slow taper of current fairly high dose of Suboxone with close monitoring throughout Referred To: patient was referred directly to intake at the [facility] focus [facility] at 12:45pm on date of discharge, 10/16/2016; she was also encouraged to regularly attend local A.A./N.A. meetings and communicate frequently with sponsor; she was also counselled once again re smoking cessation at time of discharge and given an appointment card for the next [facility] on 10/22/2016 at 4pm (facilitated by Audrey Navarro LCSW) Copies To: ROMY CANADA,ABHISHEK
== END 2016-10-16 13:10 | DRG 754 ==
LOC: ERH 10:34 → CP SOUTH 18:07 → ERHI 18:07 → CP SOUTH 18:58
PROVIDERS: Physician Assistant; ADMIT Psychiatry & Neurology Psychiatry
DX: F32.9 Major depressive disorder, single episode, unspecified (principal); F11.10 Opioid abuse, uncomplicated; F13.10 Sedative, hypnotic or anxiolytic abuse, uncomplicated; J44.9 Chronic obstructive pulmonary disease, unspecified; I10 Essential (primary) hypertension
CPT/HCPCS: 80305; 80307; G0463; G0480; J0574; J3101